=== PATIENT | male | born 1995 | race Caucasian/White ===

== ENCOUNTER → 2020-12-26 15:05 | Outpatient (CLI) | payer OTHER, MEDICAID, SELFPAY ==
--- NOTE | 2020-12-26 15:09 | DI.CT.S_ITS ---
PROCEDURE: CT SINUS SCREEN WO CON INDICATIONS: Chronic pansinusitis,HEADACHE TECHNIQUE: Noncontrast 3.0 mm axial images acquired from the frontal sinuses to the mid-sella, with coronal and sagittal reformats. For radiation dose reduction, the following was used: automated exposure control, adjustment of mA and/or kV according to patient size. COMPARISON: [facility], CT, CT BRAIN WO CON, 10/10/2015, 17:18. FINDINGS: Image quality: Excellent. Maxillary Sinuses: No bony remodeling or destruction. Sinuses are clear. Ethmoid Air Cells: No bony remodeling or destruction. Sinuses are clear. Sphenoid Sinuses: No bony remodeling or destruction. Sinuses are clear. Frontal Sinuses: No bony remodeling or destruction. Sinuses are clear. Ostiomeatal Complexes: Ostiomeatal complexes are patent, yet they are constitutionally narrowed, with bilateral Melanie cells. Miscellaneous: Visualized intra-orbital contents are normal. 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 No significant nasal septal deviation. IMPRESSION: No significant paranasal sinus disease can be seen. Narrowed ostiomeatal complexes, with bilateral Melanie cells. Vamsi bullosa are also seen. Dictated by: Rory Meléndez M.D. on 12/26/2020 at 14:26 Approved by: Rory Meléndez M.D. on 12/26/2020 at 14:28
== END ==
PROVIDERS: Referring Provider Otolaryngology; Visit Provider Otolaryngology
DX: J32.4 Chronic pansinusitis (principal); R51.9 Headache, unspecified; J34.89 Other specified disorders of nose and nasal sinuses
CPT/HCPCS: 70486

== ENCOUNTER → 2021-01-11 13:54 | Outpatient (CLI) | payer OTHER, MEDICAID, SELFPAY ==
[2021-01-11] MEDS: COVID-19 VACC, Ad26(JANSSEN)/PF 0.5 ML IM (14:01)
== END ==
PROVIDERS: Visit Provider Internal Medicine
DX: Z23 Encounter for immunization (principal)
CPT/HCPCS: 0031A; 91303